=== PATIENT | male | born 2000 | race Caucasian/White ===

== ENCOUNTER 2021-08-05 14:57 | Emergency (ER) | payer BC ==
[~2021-08-05] VITALS: Ht 177.8 cm; Wt 113.6 kg
[2021-08-05 15:27] VITALS: TEMP 98.3
[2021-08-05] MEDS ORDERED: AMOXICILLIN 8751 TAB PO (16:56)
[2021-08-05 17:01] VITALS: BP 133/86; PULSE 96
== END 2021-08-05 17:02 | disposition home or self-care (01) ==
LOC: COL.ER 14:57
DX: H66.91 Otitis media, unspecified, right ear (principal); Z20.822 Contact with and (suspected) exposure to COVID-19